=== PATIENT | male | born 1960 | race Caucasian/White ===

== ENCOUNTER 2022-11-05 05:25 | Day surgery (SDC) | payer OTHER ==
[~2022-11-05] VITALS: Ht 172.7 cm; Wt 89.8 kg
[~2022-11-05 05:25] MED LIST: ATORVASTATIN CA80 MG PO; BAYER THERAPY325 MG PO; HYDROCHLOROTHIA25 MG PO; LAMOTRIGINE100 MG PO; METFORMIN HCL750 MG PO; OXTELLAR XR150 MG PO; VALSARTAN80 MG PO
== END 2022-11-05 15:05 | disposition home or self-care (01) ==
LOC: CIR.AMB 05:25
PROVIDERS: ATTEND Surgery Surgery of the Hand
DX: M65.842 Other synovitis and tenosynovitis, left hand (principal); D21.12 Benign neoplasm of connective and other soft tissue of left upper limb, including shoulder; Z20.822 Contact with and (suspected) exposure to COVID-19